=== PATIENT | male | born 1940 | race Caucasian/White ===

== ENCOUNTER → 2024-01-09 14:01 | Outpatient (BNVA) | payer MEDICARE, MEDICAID, SELFPAY | PROVIDERS: Visit Provider Specialist | DX: G72.9 Myopathy, unspecified (principal); F02.80 Dementia in other diseases classified elsewhere, unspecified severity, without behavioral disturbance, psychotic disturbance, mood disturbance, and anxiety; G30.9 Alzheimer's disease, unspecified | CPT/HCPCS: 82306; 82550; 82607; 83516; 83519; 84443; 85651; 86431; 99204; 99205 ==

== ENCOUNTER 2024-02-05 12:46 | Outpatient (CLI) | payer MEDICARE, MEDICAID, SELFPAY ==
--- NOTE | 2024-02-05 13:00 | MR_ITS ---
WS: [id number] MRI HEAD WITHOUT CONTRAST TECHNIQUE: Sagittal T1, T2 axial, T2 axial FLAIR, axial and coronal T1 images, axial susceptibility w eighted imaging, axial diffusion weighted images, and coronal T2 images were obtained. CLINICAL INFORMATION: G31.84 - Mild cognitive impairment of uncertain or unknow... COMPARISON: None. FINDINGS: No evidence of restricted diffusion to suggest acute ischemia. Mild small vessel changes. Moderate parenchymal volume loss. Normal posterior fossa. Normal vascular flow voids at the skull base. No extra-axial fluid collection s. No evidence of mass or mass effect. Paranasal sinuses are well aerated. Mastoid air cells are well aerated. Normal optic chiasm and pitui tary infundibulum. Moderate symmetric atrophy temporal lobes and hippocampal formations. No hemosider in on the susceptibility weighted images. MR/MR head wo con* [id number] IMPRESSION: 1. No evidence of restricted diffusion to suggest acute ischemia. 2. Mild small vessel changes with moderate parenchymal volume loss. 3. Moderate symmetric atrophy temporal lobes and hippocampal formations. 4. No hemosiderin on the susceptibly weighted images. 5. Small lobulation near the anterior communicating artery suspicious for a sm all aneurysm versus volume averaging. This be further evaluated with CTA or MRA
== END 2024-02-05 12:47 | disposition home or self-care (01) ==
PROVIDERS: Visit Provider Specialist
DX: G31.9 Degenerative disease of nervous system, unspecified (principal); G72.9 Myopathy, unspecified; G31.89 Other specified degenerative diseases of nervous system
CPT/HCPCS: 70551

== ENCOUNTER → 2024-02-19 14:28 | Outpatient (BNVA) | payer MEDICARE, MEDICAID, SELFPAY | PROVIDERS: Referring Provider Specialist; Visit Provider Specialist | DX: G72.9 Myopathy, unspecified (principal); G62.9 Polyneuropathy, unspecified; G56.03 Carpal tunnel syndrome, bilateral upper limbs; I67.1 Cerebral aneurysm, nonruptured | CPT/HCPCS: 95885; 95910; 99214 ==

== ENCOUNTER 2024-02-20 09:49 | Outpatient (CLI) | payer MEDICARE, MEDICAID, SELFPAY ==
--- NOTE | 2024-02-20 10:00 | MR_ITS ---
WS: [id number] MRA HEAD TECHNIQUE: Axial 3-D TOF images obtained with axial images and axial, sagittal, and coronal 2-D refor matted images. CLINICAL INFORMATION: R51.9 - Headache, unspecified COMPARISON: MRI 02/05/2024 FINDINGS: Dominant distal LEFT vertebral artery. RIGHT vertebral artery ends in PICA. Basilar artery is patent. Normal vascularity to the MACHINIST OUTSIDE territory bilaterally. Patent posterior communicating arteries bilaterally. Both ICAs are patent at the skull base. Normal v ascularity to the GEORGETTE and MCA territories bilaterally. No evidence of high-grade proximal flow-limiti ng stenosis or aneurysm. Small LEFT A1 segment. MR/MR angio head wo con [id number] IMPRESSION: 1. No evidence of aneurysm in the area of concern. 2. Otherwise unremarkable intracranial MRA.
== END 2024-02-20 09:50 | disposition home or self-care (01) ==
LOC: RAD 09:50
PROVIDERS: Visit Provider Specialist
DX: R51.9 Headache, unspecified (principal); I67.1 Cerebral aneurysm, nonruptured; G56.03 Carpal tunnel syndrome, bilateral upper limbs; G62.9 Polyneuropathy, unspecified
CPT/HCPCS: 70544; 95910

== ENCOUNTER → 2024-02-24 10:34 | Outpatient (BNVA) | payer MEDICARE, MEDICAID, SELFPAY | PROVIDERS: Visit Provider Specialist | DX: G56.03 Carpal tunnel syndrome, bilateral upper limbs (principal); Z09 Encounter for follow-up examination after completed treatment for conditions other than malignant neoplasm; G72.9 Myopathy, unspecified; G31.84 Mild cognitive impairment of uncertain or unknown etiology; G60.3 Idiopathic progressive neuropathy; E11.9 Type 2 diabetes mellitus without complications | CPT/HCPCS: 36415; 83036; 99215 ==

== ENCOUNTER → 2024-03-23 08:47 | Outpatient (BNVA) | payer MEDICARE, MEDICAID, SELFPAY | PROVIDERS: PCP Family Medicine; Visit Provider Student in an Organized Health Care Education/Training Program | DX: G56.03 Carpal tunnel syndrome, bilateral upper limbs (principal); M72.0 Palmar fascial fibromatosis [Dupuytren] | CPT/HCPCS: 73130; 99204 ==

== ENCOUNTER → 2024-04-28 14:22 | Outpatient (BNVA) | payer MEDICARE, MEDICAID, SELFPAY | PROVIDERS: PCP Family Medicine; Visit Provider Specialist | DX: R73.9 Hyperglycemia, unspecified (principal); T50.905A Adverse effect of unspecified drugs, medicaments and biological substances, initial encounter; Z09 Encounter for follow-up examination after completed treatment for conditions other than malignant neoplasm; G72.9 Myopathy, unspecified; G31.84 Mild cognitive impairment of uncertain or unknown etiology; G56.03 Carpal tunnel syndrome, bilateral upper limbs; G60.3 Idiopathic progressive neuropathy; M35.3 Polymyalgia rheumatica; X58.XXXA Exposure to other specified factors, initial encounter | CPT/HCPCS: 36415; 83036; 86160; 86162; 86235; 86255; 86376; 99214 ==

== ENCOUNTER 2024-04-29 05:57 | Day surgery (SDC) | payer MEDICARE, MEDICAID, SELFPAY ==
[2024-04-29] VITALS (7 sets, daily range): BP systolic 105–178; BP diastolic 55–104; PULSE 60–84; RESP 10–18; TEMP 36.1–36.4; O2SAT 94–97
[2024-04-29] MEDS: sodium chloride 0.9% 1,000 ML 30 ML IV (06:33)
--- NOTE | 2024-04-29 06:36 | ANES.PREANE2 ---
Pre-Anesthetic Assessment Height/Weight: Height 5 ft 9 in Weight 231 lb Temp Pulse Resp BP Pulse Ox O2 Del Method 97.1 F L 84 16 178/104 97 Room Air 04/29/24 06:11 04/29/24 06:11 04/29/24 06:11 04/29/24 06:11 04/29/24 06:11 04/29/24 06:11 Preop Diagnosis: Carpal tunnel syndrome Operation Date: 04/29/24 07:00 Proposed Procedures p Carpal Tunnel Release(Right) - Blair Mason, DO Was Beta Paco taken within 24 hours: N/A Was Clonidine taken within 24 hours: N/A Last intake: Intake Last Liquid Date 04/28/24 Last Liquid Time 17:00 Last Solid Date 04/28/24 Last Solid Time 17:00 Social No alcohol and No tobacco Exam alert, oriented x 3, clear to auscultation bilaterally and regular rate & rhythm Airway Submandibular: within normal limits Cervical ROM: within normal limits Mallampati: Class III Dentition: full Comments: Comments: Denies any loose teeth Anesthetic Plan ASA status: 3 Anesthesia: MAC Other: No prior issues with anesthesia NPO since yesterday History of CAD, 2x stents most recent in 2022. On chronic Plavix. Last taken 04/29/2024 Hypertension on metoprolol Patient has a Holter monitor in place for PVCs that he was experiencing Recently diagnosed with polymyalgia rheumatica, on chronic prednisone 10 mg daily. Will give IntraOp Decadron given this is a minor procedure and his prednisone dosing Patient states he is able to perform ADLs Admits to SOB with significant exertion Plan for MAC anesthetic with local via surgeon Medications/Allergies Home Medications Medication Instructions Recorded Confirmed Last Taken Type aspirin 81 mg tablet,delayed 81 mg PO DAILY 01/09/24 04/28/24 04/21/24 History release (Adult Aspirin Regimen) clopidogrel 75 mg tablet (Plavix) 75 mg PO DAILY 01/09/24 04/28/24 04/21/24 History metoprolol succinate 50 mg 50 mg PO BID 01/09/24 04/28/24 04/28/24 History tablet,extended release 24 hr bimatoprost 0.01 % eye drops 2 drp ophthalmic (eye) DAILY 04/28/24 04/29/24 04/27/24 History (Lumigan) cephalexin 500 mg capsule 500 mg PO DAILY 04/28/24 04/29/24 04/28/24 History nitroglycerin 0.4 mg sublingual 0.4 mg sublingual PRN PRN Chest 04/28/24 04/29/24 Unknown History tablet Pain prednisone 10 mg tablet 10 mg PO DAILY 04/28/24 04/28/24 04/28/24 History Allergies Allergy/AdvReac Type Severity Reaction Status Date / Time atorvastatin AdvReac Intermediate Unknown Verified 04/28/24 15:13 Current Medications Generic Name Dose Route Start Last Admin Trade Name Freq PRN Reason Stop Dose Admin Sodium Chloride 1,000 mls @ 30 mls/hr 04/29/24 06:15 04/29/24 06:33 Sodium Chloride 0.9% IV 04/30/24 06:14 30 mls/hr .Q24H JOSE FRANCISCO Administration PFSH Anesthesia Social History Smoking and tobacco/nicotine status: never used tobacco/nicotine Data Anesthesia Cardiac Studies: No Data to Display
[2024-04-29] MEDS: ketorolac 30 mg/mL INJ IVP (06:39)
[2024-04-29] MEDS: acetaminophen 1,000 MG/100 ML PIGGYBACK 400 MG IV (06:39)
--- NOTE | 2024-04-29 07:02 | W.PM.OPSFHP ---
Same Day Surgery H&P Indication for Procedure/HPI DATE OF PROCEDURE: April 29, 2024 CHIEF COMPLAINT/INDICATIONFOR SURGICAL PROCEDURE: Right carpal tunnel syndrome PREOP DIAGNOSIS: Right carpal tunnel syndrome PLANNED PROCEDURE: Operation Date: 04/29/24 07:00 Proposed Procedures p Carpal Tunnel Release(Right) - Blair Mason DO Medications/Allergies* Home Medications Medication Instructions Recorded Confirmed Type aspirin 81 mg tablet,delayed 81 mg PO DAILY 01/09/24 04/28/24 History release (Adult Aspirin Regimen) clopidogrel 75 mg tablet (Plavix) 75 mg PO DAILY 01/09/24 04/28/24 History metoprolol succinate 50 mg 50 mg PO BID 01/09/24 04/28/24 History tablet,extended release 24 hr bimatoprost 0.01 % eye drops 2 drp ophthalmic (eye) DAILY 04/28/24 04/29/24 History (Lumigan) cephalexin 500 mg capsule 500 mg PO DAILY 04/28/24 04/29/24 History nitroglycerin 0.4 mg sublingual 0.4 mg sublingual PRN PRN Chest 04/28/24 04/29/24 History tablet Pain prednisone 10 mg tablet 10 mg PO DAILY 04/28/24 04/28/24 History Allergies/Adverse Reactions Allergy/AdvReac Type Severity Reaction Status Date / Time atorvastatin AdvReac Intermediate Unknown Verified 04/28/24 15:13 Current Medications: Generic Name Dose Route Start Last Admin Trade Name Freq PRN Reason Stop Dose Admin Sodium Chloride 1,000 mls @ 30 mls/hr 04/29/24 06:15 04/29/24 06:33 Sodium Chloride 0.9% IV 04/30/24 06:14 30 mls/hr .Q24H JOSE FRANCISCO Administration Pertinent History/Comorbid Conditions* Social History Smoking and tobacco/nicotine status: never used tobacco/nicotine Pertinent Exam Findings alert, oriented x 3, operative site marked and procedure specific exam findings Please refer to detailed orthopedic examination on 03/23/2024 listed below: Right hand Exam: -Normal C-spine ROM, No pain. -Negative Spurling's -Negative Tinel's @ shoulders. Normal ROM -Negative Tinel's @ elbows. Normal ROM -Mildly positive median compression test on right -Positive Tinel's on right -Mildly positive Tinel's on left -Positive Phalen's bilaterally. -Thenar weakness bilaterally. -No Intrinsic atrophy noted bilaterally. -Good Intrinsic strength -Right ring finger MP contracture of 35 degrees PIP 80 degrees -Left Middle finger MP contracture of 20 degrees PIP 60 degrees Recommendations Surgery/Procedure today Other Plans: Plan to proceed to the OR today for right carpal tunnel release. Patient understands the ins and outs of procedure the risk benefits complication alternatives surgery and through shared decision making lacks proceed with surgical intervention. All questions answered at this time. Coding Level of Care Code Acute Code for g Earlene
[2024-04-29] MEDS: ceFAZolin 2,000 mg SDV 2000 MG IVP (07:04)
[2024-04-29] MEDS: lidocaine-epi 1% 20 mL INJ 5 ML INJECTION (07:31)
[2024-04-29] MEDS: ROPivacaine 0.5% SDV 30 mL 25 MG INJECTION (07:31)
--- NOTE | 2024-04-29 07:47 | W.PM.BPON ---
Date of Procedure: 04/29/2024 Surgeon: Blair Mason DO Fabrication Technician(s): None Procedure(s) performed: Right carpal tunnel release Findings of the procedure(s): Right carpal tunnel syndrome underwent procedure as planned without issues or complications Estimated blood loss: 2 mL Specimen(s) removed: None Post-operative diagnosis: Right carpal tunnel syndrome
--- NOTE | 2024-04-29 07:48 | PM.OP ---
Operative Report Date of procedure: April 29, 2024 Surgeon: Blair Mason DO Procedure: Preop Diagnosis: Right Carpal Tunnel Syndrome Post-op diagnosis: Same Procedure done: 1. Right carpal tunnel release Surgeon: Blair Mason DO Anesthesia: MAC (Local) Estimated blood loss: 2 mL Tourniquet time 10 minutes IV fluids: See anesthesia record Complications: None Findings: See operative report narrative Condition: stable Disposition: same day Brief History: Patient is a pleasant 79 year-old male with right carpal tunnel syndrome. Patient has been worked up in the outpatient setting findings and physical examination consistent with this. Patient nerve conduction studies consistent with carpal tunnel syndrome. We detailed out patient's risk benefits complication alternatives with surgical and nonsurgical treatment options. Through shared decision making, patient agrees to proceed with surgical intervention of the right carpal tunnel release . Patient understands and agrees with current plan. All questions answered. Patient elects to proceed with surgical intervention with carpal tunnel release. Procedure: Patient seen and evaluated in the preoperative holding area. Consent was reviewed and signed with patient. Correct extremity was marked. Patient was seen evaluated by the anesthesia department once cleared for surgery was brought back to the operative suite. Patient was kept on [facility] in supine position all bony prominences were well-padded patient properly secured to the bed. Right upper extremity was then placed onto an armboard. A nonsterile tourniquet was applied to the RIght upper arm. Patient underwent anesthesia per the anesthesia department. Patient's Right upper extremity was then prepped and draped in standard orthopedic fashion. Final timeout performed. Patient received appropriate preoperative antibiotics. Under sterile aseptic technique patient received local anesthesia over the preplanned carpal tunnel incision site. Esmarch was used to exsanguinate the Right upper extremity and tourniquet was insufflated to 250 mmHg. A standard mini open Right carpal tunnel incision was made. Starting distally at Uribe's cardinal line in line with the fourth ray extending proximally distal to the wrist crease centered over the carpal tunnel. Sharp scalpel incision was made through skin and subcutaneous tissue. Self-retaining retractor was placed and the palmar fascia was identified. This was then split longitudinally and direct visualization of the transverse carpal ligament was then made. I then utilizing scalpel feathered through the transverse carpal ligament until I entered the floor of the transverse carpal tunnel ligament into the carpal tunnel. Next I switched to dissection scissors and completed my release of the transverse carpal ligament distally with care to protect the recurrent motor branch. I completely released into the palmar fat and until no entrapment was noted distally. Care was made to protect the superficial palmar arch during my distal dissection. Next I utilized a nasal speculum placed on top of the transverse carpal ligament and utilize this to retract the subcutaneous fat and tissue and under direct loupe magnification was able to identify the transverse carpal ligament. Next I then protected the contents of the carpal tunnel and subsequently utilizing dissection scissors under loupe magnification completely released the transverse carpal ligament proximally into the antebrachial fascia. Care was made to protect the palmar cutaneous branch by keeping my scissors curved ulnarly. Once completely released, I then placed my [place] and had appropriate decompression of the carpal tunnel proximally as well as distally. I then inspected the contents of the carpal tunnel which showed an hourglass shape of the median nerve showing its compression. No masses were noted. Tendons appeared healthy. Wound was then thoroughly irrigated. Tourniquet deflated. Hemostasis satisfactory with bipolar electrocautery. I then closed the incision with interrupted nylon stitches. Xeroform 4 x 4's and a bulky soft dressing was applied. Patient was then awakened from anesthesia and taken to PACU in stable condition. Patient tolerated procedure without complications. Disposition: Patient taken to PACU in stable condition recovering well. Dressing clean dry and intact. Patient will receive appropriate discharge instructions as well as pain medication postoperatively. Patient to follow-up with me in the office in 2 weeks. They understand they may be weightbearing as tolerated to the right hand. Patient should keep incision clean dry and intact. Patient understands if any questions or concerns may contact the office.
--- NOTE | 2024-04-29 08:45 | ANE.PACU2 ---
Inpatient post-anesthesia follow up: Airway intact: Yes Vital signs: Temperature 97 F Pulse Rate 60 Respiratory Rate 18 Blood Pressure 131/67 Pulse Oximetry 95 Oxygen Delivery Me thod Room Air Oxygen Flow Rate Fraction of Inspir ed Oxygen Hydration adequate: Yes Nausea and vomiting: No Pain level: 1 Mental status: Baseline
== END 2024-04-29 08:45 | disposition home or self-care (01) ==
PROVIDERS: PCP Family Medicine; Visit Provider Student in an Organized Health Care Education/Training Program
PROC: (CPT 64721; principal; 2024-04-29 07:00)
DX: G56.01 Carpal tunnel syndrome, right upper limb (principal); I25.10 Atherosclerotic heart disease of native coronary artery without angina pectoris; Z95.5 Presence of coronary angioplasty implant and graft; Z79.02 Long term (current) use of antithrombotics/antiplatelets; I10 Essential (primary) hypertension; Z79.52 Long term (current) use of systemic steroids; Z79.82 Long term (current) use of aspirin
CPT/HCPCS: 64721; J0131; J0690; J1100; J1885; J2704; J2795; J3010; J7030

== ENCOUNTER → 2024-05-14 09:22 | Outpatient (BNVA) | payer MEDICARE, MEDICAID, SELFPAY | PROVIDERS: PCP Family Medicine; Visit Provider Physician Assistant | DX: Z98.890 Other specified postprocedural states (principal) | CPT/HCPCS: 99024 ==

== ENCOUNTER → 2024-06-04 09:00 | Outpatient (BNVA) | payer MEDICARE, MEDICAID, SELFPAY | PROVIDERS: PCP Family Medicine; Visit Provider Physician Assistant | DX: G56.03 Carpal tunnel syndrome, bilateral upper limbs (principal) | CPT/HCPCS: 99214 ==

== ENCOUNTER 2024-07-16 11:22 | Day surgery (SDC) | payer MEDICARE, MEDICAID, SELFPAY ==
[2024-07-16] VITALS (9 sets, daily range): BP systolic 149–169; BP diastolic 63–99; PULSE 62–80; RESP 16–18; TEMP 36.3–36.6; O2SAT 95–99; BMI 36.0
--- NOTE | 2024-07-16 11:45 | W.PM.OPSFHP ---
Same Day Surgery H&P Indication for Procedure/HPI DATE OF PROCEDURE: July 16, 2024 CHIEF COMPLAINT/INDICATIONFOR SURGICAL PROCEDURE: Left carpal tunnel syndrome PREOP DIAGNOSIS: Left carpal tunnel syndrome PLANNED PROCEDURE: Operation Date: 07/16/24 13:35 Proposed Procedures p Carpal Tunnel Release(Left) - Blair Mason, DO Medications/Allergies* Home Medications ?Medication ?Instructions ?Recorded ?Confirmed ?Type aspirin 81 mg tablet,delayed 81 mg PO DAILY 01/09/24 07/15/24 History release (Adult Aspirin Regimen) clopidogrel 75 mg tablet (Plavix) 75 mg PO DAILY 01/09/24 07/15/24 History metoprolol succinate 50 mg 50 mg PO DAILY 01/09/24 07/15/24 History tablet,extended release 24 hr bimatoprost 0.01 % eye drops 2 drp ophthalmic (eye) DAILY 04/28/24 07/16/24 History (Lumigan) nitroglycerin 0.4 mg sublingual 0.4 mg sublingual PRN PRN Chest 04/28/24 07/15/24 History tablet Pain prednisone 10 mg tablet 10 mg PO DAILY 04/28/24 07/15/24 History lisinopril 5 mg tablet 5 mg PO DAILY 06/04/24 07/15/24 History spironolactone 25 mg tablet 25 mg PO DAILY 06/04/24 07/15/24 History amiodarone 200 mg tablet 200 mg PO DAILY 07/15/24 07/15/24 History Allergies/Adverse Reactions Allergy/AdvReac Type Severity Reaction Status Date / Time atorvastatin AdvReac Intermediate Unknown Verified 07/15/24 13:46 vaccines Allergy Unknown Uncoded 07/15/24 13:47 Pertinent History/Comorbid Conditions* Social History Smoking and tobacco/nicotine status: never used tobacco/nicotine Pertinent Exam Findings alert, oriented x 3, operative site marked and procedure specific exam findings Please refer to detailed orthopedic examination on 06/04/2024: Left Hand exam-positive Tinel's and positive Phalen's test. No thenar atrophy and thenar muscle weakness. Full range of motion in fingers and wrist and fingers are warm and well-perfused with normal cap refill under 2 seconds. Radial pulse 2+, no intrinsic muscle weakness noted. Elbow exam-negative Tinel's test Recommendations Surgery/Procedure today Other Plans: Plan to proceed to the OR today for left carpal tunnel release. Patient had the right side done done well with this has been satisfied with his results, through shared decision making patient elects proceed with surgical intervention today for left carpal tunnel release once again he understands the ins and outs of procedure the risk benefits complication alternatives surgery and through shared decision-making elects proceed with surgical intervention. All questions answered. Coding Level of Care Code Acute Code for Chg Fwd
[2024-07-16] MEDS: ketorolac 30 mg/mL INJ IVP (12:14)
[2024-07-16] MEDS: acetaminophen 1,000 MG/100 ML PIGGYBACK 400 MG IV (12:14)
[2024-07-16] MEDS: sodium chloride 0.9% 1,000 ML 30 ML IV (12:15)
[2024-07-16] MEDS: ceFAZolin 2,000 MG in sodium chloride 0.9% (plus) 50 ML 100 MG IV (13:00)
[2024-07-16] MEDS: lidocaine-epi 1% 20 mL INJ INJECTION (13:18)
[2024-07-16] MEDS: ROPivacaine 0.5% SDV 30 mL 150 MG INJECTION (13:18)
--- NOTE | 2024-07-16 13:51 | W.PM.BPON ---
Date of Procedure: 07/16/2024 Surgeon: Blair Mason DO Director Metabolism(s): None Procedure(s) performed: Left carpal tunnel release Findings of the procedure(s): Patient underwent procedure as planned without issues or complications. Taken back to PACU/recovery in stable condition Estimated blood loss: 5 mL Specimen(s) removed: None Post-operative diagnosis: Left carpal tunnel syndrome
--- NOTE | 2024-07-16 13:52 | PM.OP ---
Operative Report Date of procedure: July 16, 2024 Surgeon: Blair Mason DO Procedure: Preop Diagnosis: Left Carpal Tunnel Syndrome Post-op diagnosis: Same Procedure done: 1. Left carpal tunnel release Surgeon: Blair Mason DO Anesthesia: Local only Estimated blood loss: [5]mL Tourniquet time [7]minutes IV fluids: See anesthesia record Complications: None Findings: See operative report narrative Condition: stable Disposition: same day Brief History: Patient is a pleasant [84 ]year-old [M ] with left carpal tunnel syndrome. Patient has been worked up in the outpatient setting findings and physical examination consistent with this. Patient nerve conduction studies consistent with carpal tunnel syndrome. We detailed out patient's risk benefits complication alternatives with surgical and nonsurgical treatment options. Through shared decision making, patient agrees to proceed with surgical intervention of the left carpal tunnel release . Patient understands and agrees with current plan. All questions answered. Patient elects to proceed with surgical intervention with carpal tunnel release. Procedure: Patient seen and evaluated in the preoperative holding area. Consent was reviewed and signed with patient. Correct extremity was marked. Patient at this point in time due to his health history and workup anesthesia would recommend anesthetic today from a general anesthesia standpoint and as result talked about it in detail with the patient and he was comfortable with just doing this under local only anesthesia. As a result we elected proceed with local only anesthesia. Patient was brought back to the operative suite. Patient was kept on [facility] in supine position all bony prominences were well-padded patient properly secured to the bed. Left upper extremity was then placed onto an armboard. A nonsterile tourniquet was applied to the left upper arm. Patient underwent anesthesia per the anesthesia department. Patient's left upper extremity was then prepped and draped in standard orthopedic fashion. Final timeout performed. Patient received appropriate preoperative antibiotics. Under sterile aseptic technique patient received local anesthesia over the preplanned carpal tunnel incision site. Esmarch was used to exsanguinate the left upper extremity and tourniquet was insufflated to 250 mmHg. A standard mini open left carpal tunnel incision was made. Starting distally at Uribe's cardinal line in line with the fourth ray extending proximally distal to the wrist crease centered over the carpal tunnel. Sharp scalpel incision was made through skin and subcutaneous tissue. Self-retaining retractor was placed and the palmar fascia was identified. This was then split longitudinally and direct visualization of the transverse carpal ligament was then made. I then utilizing scalpel feathered through the transverse carpal ligament until I entered the floor of the transverse carpal tunnel ligament into the carpal tunnel. Next I switched to dissection scissors and completed my release of the transverse carpal ligament distally with care to protect the recurrent motor branch. I completely released into the palmar fat and until no entrapment was noted distally. Care was made to protect the superficial palmar arch during my distal dissection. Next, nasal speculum placed proximally for retraction of soft tissue on top of the Transverse carpal ligament. Next the contents of the carpal tunnel where protected and and subsequently utilizing dissection scissors under loupe magnification completely released the transverse carpal ligament proximally into the antebrachial fascia. Care was made to protect the palmar cutaneous branch by keeping my scissors curved ulnarly. Once completely released, I then placed my [place] and had appropriate decompression of the carpal tunnel proximally as well as distally. I then inspected the contents of the carpal tunnel which showed an hourglass shape of the median nerve showing its compression. No masses were noted. Tendons appeared healthy. Wound was then thoroughly irrigated. Tourniquet deflated. Hemostasis satisfactory with bipolar electrocautery. I then closed the incision with interrupted nylon stitches. Xeroform 4 x 4's and a bulky soft dressing was applied to the left upper extremity. Patient was then taken to recovery in stable condition. Patient tolerated procedure without complications. Disposition: Patient taken to PACU in stable condition recovering well. Dressing clean dry and intact. Patient will receive appropriate discharge instructions as well as pain medication postoperatively. Patient to follow-up with me in the office in 2 weeks. They understand they may be weightbearing as tolerated to the left hand. Patient should keep incision clean dry and intact. Patient understands if any questions or concerns may contact the office.
== END 2024-07-16 14:10 | disposition home or self-care (01) ==
PROVIDERS: PCP Family Medicine; Visit Provider Student in an Organized Health Care Education/Training Program
PROC: (CPT 64721; principal; 2024-07-16 13:25)
DX: G56.02 Carpal tunnel syndrome, left upper limb (principal); Z79.82 Long term (current) use of aspirin; Z79.02 Long term (current) use of antithrombotics/antiplatelets; Z79.899 Other long term (current) drug therapy; Z88.7 Allergy status to serum and vaccine
CPT/HCPCS: 64721; J0131; J0690; J1885; J2704; J2795; J7030

== ENCOUNTER → 2024-07-27 14:42 | Outpatient (BNVA) | payer MEDICARE, MEDICAID, SELFPAY | PROVIDERS: PCP Family Medicine; Visit Provider Specialist | DX: Z09 Encounter for follow-up examination after completed treatment for conditions other than malignant neoplasm (principal); G60.3 Idiopathic progressive neuropathy; G56.03 Carpal tunnel syndrome, bilateral upper limbs | CPT/HCPCS: 99214 ==